=== PATIENT | male | born 1940 | race Caucasian/White ===

== ENCOUNTER → 2016-07-06 | Outpatient (CLI) | payer MEDICARE ==
[~2016-07-06] MED LIST: ALEVE220 M1 PO; ALPRAZOLAM PO; ASPIRINEC PO; COUMADIN2.5 MG PO; COUMADIN5 MG PO; CRESTOR PO; ECOTRIN81 M1 PO; EXCEDRIN; HYDROCODON-ACE1 EAC5 PO; LANSOPRAZOLE30 M1 PO; LOVASTATIN20 M1 PO; LOVENOX SUBQ; MAVIK4 MG PO; MELATONIN; MELATONIN5 M2 PO; METOPROLOL SUC100 MG PO; NEXIUM PO; NORVASC10 MG PO; PREVACID PO; PROTONIX PO; SLEEP AID50 MG PO; STOOL SOFT-STI1 EACH PO; TOPROL XL PO; TOPROL XL100 MG PO; TRANDOLAPRIL4 M1 PO; VIRTUSSIN AC L118 ML PO; ZOCOR80 MG PO
--- NOTE | ~2016-07-06 | CR172 ---
[facility] A Service of [facility] [place] [place] RADIOLOGY TEXT RESULTS PATIENT: JOSAFAT COLE LOCATION: [facility] : 38 UNIT #: [id number] AGE: [address]: BARON HARGROVE MD SEX: M ORDER DR: [id number] [facility] [address] [place], [place] [address] [id number] O MR#: [id number] Acc #: [id number] NAME: JOSAFAT COLE : 1940 SEX: M STUDY DATE/TIME: 07/06/2016 11:29 UNIT: [facility] ROOM: STUDY DESCRIPTION: CR Knee 3 Views Lt Attending Physician: Baron Hargrove M.D. Referring Physician: Baron Hargrove M.D. Ordering Physician: Baron Hargrove M.D. Primary Care Physician: Baron Hargrove M.D. MEDICAL IMAGING REPORT This report is preliminary unless electronic signature is present EXAM Left knee 3 views HISTORY Knee pain and swelling for 6 months. FINDINGS 3 views of left knee demonstrate satisfactory bone alignment. Moderately severe joint space narrowing in the medial compartment and mild joint space narrowing in the lateral compartment. There are also mild degenerative changes in the patellofemoral compartment. Generalized demineralization. No fracture or effusion. IMPRESSION No acute findings. Generalized demineralization. Moderately advanced degenerative joint space narrowing in the medial compartment and additional degenerative changes in the lateral and patellofemoral compartments. Dictated by... Bradford Segovia M.D. THIS IS AN ELECTRONICALLY VERIFIED REPORT Bradford Segovia M.D. at 07/06/2016 10:58 PM BELKIS/sohail TD: 07/06/2016 20:22 JOB #: [id number] MEDICAL IMAGING REPORT Page 1 of 1 COPY
== END | disposition home or self-care (01) ==
LOC: CRAD 11:14
DX: M25.562 Pain in left knee (principal); M17.12 Unilateral primary osteoarthritis, left knee
CPT/HCPCS: 73562

== ENCOUNTER → 2016-11-30 | Outpatient (CLI) | payer MEDICARE ==
[2016-11-30 12:13] LABS: HEMATOCRIT 40.6 % (38.0-50.0); HEMOGLOBIN 13.9 gm/dL (13.0-16.0); MEAN CORPUSCULAR HEMOGLOBIN 28.7 PG (28-34); MEAN CORPUSCULAR HGB CONC 34.1 g/dL (30-36); MEAN PLATELET VOLUME 6.7 FL (6.5-11.5); RED BLOOD COUNT 4.84 X10e (3.90-5.60); RED CELL DISTRIBUTION WIDTH 14.7 % (11.0-15.5); WHITE BLOOD COUNT 7.8 X10e3 (4.0-10.5)
[2016-11-30 12:57] LABS: BUN/CREATININE RATIO 15.29; CALCIUM SERUM 9.5 mg/dL (8.4-10.2); CREATININE SERUM 1.7 mg/dL (0.6-1.4); GLOM FILT RATE Estimated 37.8 mL/min (>60)
== END | disposition home or self-care (01) ==
LOC: CLAB 11:55
PROVIDERS: Orthopaedic Surgery
DX: M17.12 Unilateral primary osteoarthritis, left knee (principal)
CPT/HCPCS: 36415; 80048; 85027

== ENCOUNTER → 2016-12-13 | Outpatient (CLI) | payer MEDICARE ==
--- NOTE | ~2016-12-13 | CR63 ---
[facility] A Service of [facility] RADIOLOGY TEXT RESULTS PATIENT: JOSAFAT COLE LOCATION: [facility] : 38 UNIT #: [id number] AGE: [address]: Gilbert Kim MD SEX: M ORDER DR: [id number] [place] [address] [place], [place] [address] [id number] O MR#: [id number] Acc #: [id number] NAME: JOSAFAT COLE : 1940 SEX: M STUDY DATE/TIME: 12/13/2016 10:40 UNIT: [facility] ROOM: STUDY DESCRIPTION: CR Chest 2 View Attending Physician: Gilbert Kim M.D. Referring Physician: Gilbert Kim M.D. Ordering Physician: Gilbert Kim M.D. Primary Care Physician: Mary Moore M.D. MEDICAL IMAGING REPORT This report is preliminary unless electronic signature is present EXAM Two-view chest 12/13/2016 INDICATIONS Preop evaluation for total left knee replacement. Pain in the left knee. Cough. Symptoms began 3-4 days ago. History of prostate and colon malignancies. Hypertension and stroke. TECNIQUE 2 views of the chest were performed. Comparison 05/28/2012 FINDINGS Cardiac silhouette borderline in size. Vascularity within normal limits. Lung volumes are low with bronchovascular crowding. There is probable chronic fibrosis and scarring in both lungs. No effusion, dense consolidation or pneumothorax. Mild thoracic spondylosis. Gallbladder surgically absent. There are calcified granulomas. Biapical pleural thickening unchanged. Impression 1. Chronic-appearing lung changes. No definite superimposed active disease or significant interval change. Dictated by... Benoit Wynn M.D. THIS IS AN ELECTRONICALLY VERIFIED REPORT Benoit Wynn M.D. at 12/13/2016 3:32 PM Tammy TD: 12/13/2016 14:59 JOB #: [id number] [facility] A Service of [facility] RADIOLOGY TEXT RESULTS PATIENT: JOSAFAT COLE LOCATION: [facility] #: [id number] : 36 UNIT #: [id number] AGE: [address]: Gilbert Kim MD SEX: M ORDER DR: MEDICAL IMAGING REPORT Page 1 of 1 COPY
--- NOTE | ~2016-12-13 | CR172 ---
[facility] A Service of [facility] RADIOLOGY TEXT RESULTS PATIENT: JOSAFAT COLE LOCATION: [facility] : 38 UNIT #: [id number] AGE: [address]: Gilbert Kim MD SEX: M ORDER DR: [id number] [place] [id number] [facility]. [place], [place] [address] [id number] O MR#: [id number] Acc #: [id number] NAME: JOSAFAT COLE : 1940 SEX: M STUDY DATE/TIME: 12/13/2016 10:46 UNIT: [facility] ROOM: STUDY DESCRIPTION: CR Knee 3 Views Lt Attending Physician: Gilbert Kim M.D. Referring Physician: Gilbert Kim M.D. Ordering Physician: Gilbert Kim M.D. Primary Care Physician: Mary Moore M.D. MEDICAL IMAGING REPORT This report is preliminary unless electronic signature is present EXAM Left knee 3 views 12/13/2016 INDICATIONS 76-year-old male undergoing preop evaluation total left knee replacement. Pain in the left knee for a year. History of stroke, hypertension. Prostate and colonic malignancies. TECHNIQUE 3 views left knee. COMPARISON 07/06/2016. FINDINGS The bones are osteoporotic. There is at least moderate degenerative change in the medial compartment and [id number] degenerative change in the patellofemoral and lateral compartments. There is spurring of the tibial spines. No acute fracture. No joint effusion. Atherosclerotic calcifications present. IMPRESSION 1. Osteoporosis with tricompartmental degenerative change. No acute fracture. Dictated by... Benoit Wynn M.D. THIS IS AN ELECTRONICALLY VERIFIED REPORT Benoit Wynn M.D. at 12/14/2016 7:24 AM JLSiena/claudette [facility] A Service of [facility] RADIOLOGY TEXT RESULTS PATIENT: JOSAFAT COLE LOCATION: [facility] : 36 UNIT #: [id number] AGE: [address]: Gilbert Kim MD SEX: M ORDER DR: TD: 12/13/2016 23:35 JOB #: [id number] MEDICAL IMAGING REPORT Page 1 of 1 COPY
[2016-12-13 10:39] LABS: URINE APPEARANCE CLEAR; URINE BILIRUBIN NEG (NEG); URINE BLOOD NEG (NEG); URINE COLOR YELLOW; URINE GLUCOSE NEG (NEG); URINE KETONE NEG (NEG); URINE LEUKOCYTE ESTERASE NEG (NEG); URINE NITRATE NEG (NEG); URINE PROTEIN NEG (NEG); URINE SPECIFIC GRAVITY 1.019 (1.003-1.035)
[2016-12-13 10:44] LABS: URINE SOURCE CLEAN CATCH
[2016-12-13 10:46] LABS: HEMATOCRIT 38.7 % (38.0-50.0); HEMOGLOBIN 13.3 gm/dL (13.0-16.0); MEAN CELL VOLUME 83.8 FL (83-96); MEAN CORPUSCULAR HEMOGLOBIN 28.7 PG (28-34); MEAN CORPUSCULAR HGB CONC 34.3 g/dL (30-36); MEAN PLATELET VOLUME 6.6 FL (6.5-11.5); RED BLOOD COUNT 4.62 X10e (3.90-5.60); RED CELL DISTRIBUTION WIDTH 14.6 % (11.0-15.5); WHITE BLOOD COUNT 7.3 X10e3 (4.0-10.5)
[2016-12-13 10:48] LABS: CULTURE INDICATED? NO
[2016-12-13 10:51] LABS: INR 2.1
== END | disposition home or self-care (01) ==
LOC: CAMB 09:34
PROVIDERS: Orthopaedic Surgery
DX: Z01.818 Encounter for other preprocedural examination (principal); M17.12 Unilateral primary osteoarthritis, left knee; R91.8 Other nonspecific abnormal finding of lung field
CPT/HCPCS: 36415; 71020; 73562; 81003; 85027; 85610; 86850; 86885; 86900; 86901; 87070